=== PATIENT | female | born 2000 | race Caucasian/White ===

== ENCOUNTER 2023-05-14 10:50 | Emergency (ER) | payer BC, OTHER, SELFPAY ==
[2023-05-14 10:56] VITALS: BP 136/82; PULSE 94; RESP 16; TEMP 36.9; O2SAT 96; BMI 50.8
--- NOTE | 2023-05-14 11:03 | US_ITS ---
[place] [id number] Patient Name: MADDI HERRERA MRN: [id number] date: 2000 Sex: F Assigned Patient Location: ED.MAIN Current Patient Location: ER Accession/Order Number: [id number] Exam Date: 05/14/2023 11:04 Report Date: 05/14/2023 11:59 At the request of: EDU CARLSON Procedure: US OB <= 14 weeks fetus EXAMINATION: US OB <= 14 weeks fetus HISTORY: vaginal bleeding COMPARISON: No relevant comparison available. FINDINGS: GESTATIONAL SAC: Present and normal appearing. YOLK SAC: Present and normal appearing. POLE: Present and normal appearing. CARDIAC: Present. UTERUS: Normal size and appearance. OVARIES: Right: Not seen. Left: Not seen. CERVIX: 3.6 cm in length and closed. CUL-DE-SAC: Normal. OTHER: None. AGE BY LMP: 11 weeks 4 days MARIELOS BY LMP: 11/29/2023 AGE BY US CRL: 11 weeks 5 days MARIELOS BY US CRL: 11/28/2023 US/US OB <= 14 weeks fetus IMPRESSION: 1. Single live intrauterine . No acute or suspicious findings. Electronically authenticated by: ABRAHAM GOODE Date: 05/14/2023 11:59
[2023-05-14 11:59] LABS: Basophils Percent Auto 0.5 % (0.2-2.0); Eosinophils Absolute Auto 0.2 10^3/uL (0.0-0.7); Eosinophils Percent Auto 3.5 % (0.9-7.0); Hematocrit 36.9 % (36.0-48.0); Hemoglobin 12.4 g/dL (12.0-16.0); Immature Granulocytes Abs Auto 0.02 10^3/uL (0.00-0.03); Immature Granulocytes Pct Auto 0.3 % (0.0-0.5); Lymphocytes Absolute Auto 1.1 10^3/uL (1.2-3.8); Lymphocytes Percent Auto 18.2 % (20.5-60.0); Mean Corpuscular HGB Conc 33.6 g/dL (29.9-35.2); Mean Corpuscular Hemoglobin 28.5 pg (26.7-34.0); Mean Corpuscular Volume 84.8 fL (81.0-99.0); Mean Platelet Volume 9.5 fL (9.5-13.5); Monocytes Absolute Auto 0.3 10^3/uL (0.3-0.8); Monocytes Percent Auto 5.4 % (1.7-12.0); Neutrophils Absolute Auto 4.2 10^3/uL (1.4-6.5); Neutrophils Percent Auto 72.1 % (43.0-75.0); Platelet Count 283 10^3/uL (150-450); Red Blood Count 4.35 10^6/uL (4.20-5.40); Red Cell Distribution Width 13.1 % (11.0-15.0); White Blood Count 5.8 10^3/uL (4.0-11.0)
[2023-05-14 12:06] LABS: Alanine Aminotransferase 15 U/L (14-59); Albumin Level 3.8 g/dL (3.4-5.0); Alkaline Phosphatase 48 U/L (46-116); Anion Gap 13.5; Aspartate Amino Transferase 15 U/L (15-37); BUN Creatinine Ratio 7.2; Bilirubin Total 0.9 mg/dL (0.2-1.0); Calcium 8.9 mg/dL (8.5-10.1); Carbon Dioxide 24.3 mmol/L (21.0-32.0); Chloride 101 mmol/L (98-107); Estimated GFR (African America >60 (>=60); Estimated GFR (Non-African Ame >60 (>=60); Globulin 3.9 g/dL; Glucose 84 mg/dL (74-106); Potassium 3.8 mmol/L (3.5-5.1); Sodium 135 mmol/L (136-145); Total Protein 7.7 g/dL (6.4-8.2)
[2023-05-14 12:27] VITALS: BP 110/79
[2023-05-14 12:28] VITALS: PULSE 86; RESP 16; TEMP 36.8; O2SAT 99
--- NOTE | 2023-05-14 14:10 | ED.FEMALEGU1 ---
HPI - Female Genitourinary General Chief complaint: Vaginal Bleeding Stated complaint: -11 WKS/BLEEDING/SPOTTING Time Seen by Provider: 05/14/23 10:58 Source: patient Mode of arrival: walk-in Limitations: no limitations History of Present Illness HPI Narrative: The patient is 11 weeks this is her third and both of her first were continued until terms no history of miscarriage The patient presented to us with this vaginal bleeding that started Sunday according to her the bleeding was similar to her menstruation bleeding and not more than that if not associated with any cramping It started Sunday and resolved by Sunday but again started this morning too She already contacted her [employer] office and they told her to follow-up with the ER Related Data Home Medications Medication Instructions Recorded Confirmed ondansetron HCl 4 mg tablet mg 05/14/23 sertraline 100 mg tablet mg 05/14/23 Allergies Allergy/AdvReac Type Severity Reaction Status Date / Time Penicillins AdvReac Intermediate Verified 05/14/23 10:55 Review of Systems ROS Status of ROS 10 or more systems reviewed and unremarkable except as noted in history and below PFSH PFS Social History Smoking status: Never smoker Exam Narrative Exam Narrative: Nurses notes and vital signs reviewed and patient is not hypoxic. General: Well-appearing and in no apparent distress. Skin: Warm, dry, no pallor noted. No rash. Head: Normocephalic, atraumatic. Neck: Supple, non-tender. Eye: Pupils are equal, round and EOMI. No scleral icterus. Ears, Nose, Mouth, and Throat: TM are clear, no nasal mucosal hypertrophy. Oral mucosa is moist, no posterior oropharynx erythema, uvula is mid-line Cardiovascular: Regular Rate and Rhythm without murmur, gallop or rub. Respiratory: No accessory muscle use or respiratory distress. Lungs are clear to auscultation, no wheezing, rales or rhonchi Chest Wall: no tenderness Back: No midline thoracic or lumbar vertebral tenderness. No CVA tenderness Musculoskeletal: normal ROM, no calf or popliteal tenderness, no lower extremity edema/swelling GI: Abdomen is soft, non-distended. Normal bowel sounds. No masses appreciated. No tenderness to palpation. No rebound, guarding, or rigidity noted. Neurological: A&O x4. No cranial nerve dysfunction observed. No truncal ataxia. Moves all extremities. Sensation intact. Psychiatric: Cooperative and interactive. Normal mood and affect. Constitutional Vital Signs, click to edit/add: Last Vital Signs Temp 98.2 F 05/14/23 12:28 Pulse 86 05/14/23 12:28 Resp 16 05/14/23 12:28 BP 110/79 05/14/23 12:27 Pulse Ox 99 05/14/23 12:28 O2 Del Method Room Air 05/14/23 10:56 Course Vital Signs Vital signs: Vital Signs Temperature 98.4 F 05/14/23 10:56 Pulse Rate 94 H 05/14/23 10:56 Respiratory Rate 16 05/14/23 10:56 Blood Pressure 136/82 H 05/14/23 10:56 Pulse Oximetry 96 05/14/23 10:56 Oxygen Delivery Method Room Air 05/14/23 10:56 Temperature 98.2 F 05/14/23 12:28 Pulse Rate 86 05/14/23 12:28 Respiratory Rate 16 05/14/23 12:28 Blood Pressure 110/79 05/14/23 12:27 Pulse Oximetry 99 05/14/23 12:28 Oxygen Delivery Method Room Air 05/14/23 10:56 MDM - Female Genitourinary MDM Narrative Medical decision making narrative: The patient CBC and chemistry showed no acute significant pathology and she was hemodynamically stable Ultrasound of the pelvis showed that the patient have intrauterine that is 11 weeks with no pathology detected Right now the patient was provided with instruction of rest and avoid exertion and sexual intercourse The patient to follow-up with her OB doctor within the week and to come back to the ER in case of any new symptoms or increasing bleeding It was noted that the patient was not bleeding in the ER Lab Data Labs: Lab Results 05/14/23 Range/Units 11:25 WBC 5.8 (4.0-11.0) 10^3/uL RBC 4.35 (4.20-5.40) 10^6/uL Hgb 12.4 (12.0-16.0) g/dL Hct 36.9 (36.0-48.0) % MCV 84.8 (81.0-99.0) fL MCH 28.5 (26.7-34.0) pg MCHC 33.6 (29.9-35.2) g/dL RDW 13.1 (11.0-15.0) % Plt Count 283 (150-450) 10^3/uL MPV 9.5 (9.5-13.5) fL Neut % (Auto) 72.1 (43.0-75.0) % Lymph % (Auto) 18.2 L (20.5-60.0) % Dale % (Auto) 5.4 (1.7-12.0) % Eos % (Auto) 3.5 (0.9-7.0) % Baso % (Auto) 0.5 (0.2-2.0) % Neut # (Auto) 4.2 (1.4-6.5) 10^3/uL Lymph # (Auto) 1.1 L (1.2-3.8) 10^3/uL Dale # (Auto) 0.3 (0.3-0.8) 10^3/uL Eos # (Auto) 0.2 (0.0-0.7) 10^3/uL Baso # (Auto) 0.0 (0.0-0.1) 10^3/uL Abs Immat Gran (auto) 0.02 (0.00-0.03) 10^3/uL Imm/Tot Granulo (auto) 0.3 (0.0-0.5) % Sodium 135 L (136-145) mmol/L Potassium 3.8 (3.5-5.1) mmol/L Chloride 101 (98-107) mmol/L Carbon Dioxide 24.3 (21.0-32.0) mmol/L Anion Gap 13.5 BUN 5.0 L (7.0-18.0) mg/dL Creatinine 0.69 (0.55-1.02) mg/dL Est GFR ( Amer) >60 (>=60) Est GFR (Non-Af Amer) >60 (>=60) BUN/Creatinine Ratio 7.2 Glucose 84 (74-106) mg/dL Calcium 8.9 (8.5-10.1) mg/dL Total Bilirubin 0.9 (0.2-1.0) mg/dL AST 15 (15-37) U/L ALT 15 (14-59) U/L Alkaline Phosphatase 48 (46-116) U/L Total Protein 7.7 (6.4-8.2) g/dL Albumin 3.8 (3.4-5.0) g/dL Globulin 3.9 g/dL Albumin/Globulin Ratio 1.0 Discharge Plan Discharge Chief Complaint: Vaginal Bleeding Clinical Impression: Threatened miscarriage Patient Disposition: Home, Self-Care Time of Disposition Decision: 12:21 Condition: Good Mode of Transportation: Private Vehicle Prescriptions / Home Meds: No Action ondansetron HCl 4 mg tablet sertraline 100 mg tablet Instructions: Threatened Miscarriage (ED) Additional Instructions: please call your OB and make appointment [facility] Stand Alone Forms: Portal Instructions Referrals: WALDO KENNEDY [Primary Care Provider] - 1 week Discharge Date/Time: 05/14/23 12:30
== END 2023-05-14 12:30 | disposition home or self-care (01) ==
PROVIDERS: Emergency Provider Emergency Medicine; PCP Family Medicine
DX: O20.0 Threatened abortion (principal); Z79.899 Other long term (current) drug therapy; Z3A.11 11 weeks gestation of pregnancy
CPT/HCPCS: 36415; 76801; 80053; 85025; 99284

== ENCOUNTER 2023-10-25 19:16 | Observation (INO) | payer BC, SELFPAY ==
[2023-10-25] VITALS (11 sets, daily range): BP systolic 80–128; BP diastolic 41–70; PULSE 52–98; TEMP 36.3
[2023-10-25 20:01] LABS: Amnisure POSITIVE (NEGATIVE)
[2023-10-25 20:14] LABS: Bilirubin Urine NEGATIVE (NEGATIVE); Blood Urine LARGE (NEGATIVE); Clarity Urine CLEAR (CLEAR); Color Urine LT. YELLOW (YELLOW); Glucose Urine UA NEGATIVE (NEGATIVE); Ketones Urine NEGATIVE (NEGATIVE); Leukocyte Esterase Urine SMALL (NEGATIVE); Nitrite Urine NEGATIVE (NEGATIVE); Protein Urine TRACE mg/dL (NEG/TRACE); Urobilinogen Urine 0.2 EU/dL (0.2-1.0); pH Urine 7.5 (5.0-9.0)
[2023-10-25 20:16] LABS: Urine Microscopic Indicated YES
[2023-10-25 20:26] LABS: Bacteria Urine SMALL #/HPF (NONE SEEN); Cast Seen? NONE SEEN #/LPF (NONE SEEN); Crystals Seen? None Seen #/HPF (None Seen); Mucus Urine LARGE (NONE SEEN); Squamous Epithelial Cell Urine FEW #/LPF (NONE/RARE); Urine Culture Indicated YES
[2023-10-25] MEDS: CLINDAMYCIN PHOSPHATE/D5W 900 MG/50 ML PIGGYBACK 100 MG IV (21:45)
[2023-10-25] MEDS: 0.9 % SODIUM CHLORIDE 1,000 ML 125 ML IV (21:47)
[2023-10-25 22:00] LABS: Hematocrit 27.9 % (36.0-48.0); Hemoglobin 8.9 g/dL (12.0-16.0); Mean Corpuscular HGB Conc 31.9 g/dL (29.9-35.2); Mean Corpuscular Hemoglobin 27.3 pg (26.7-34.0); Mean Corpuscular Volume 85.6 fL (81.0-99.0); Mean Platelet Volume 9.9 fL (9.5-13.5); Platelet Count 281 10^3/uL (150-450); Red Blood Count 3.26 10^6/uL (4.20-5.40); Red Cell Distribution Width 13.4 % (11.0-15.0); White Blood Count 9.1 10^3/uL (4.0-11.0)
[2023-10-25] MEDS: BETAMETHASONE ACE/BETAMETHASONE SOD PHOS 30 MG/5 ML 12 MG IM (22:33)
--- NOTE | 2023-10-25 22:38 | P.DS_ITS ---
Transfer Discharge Sum: Prov Provider Date of admission: 10/25/23 19:16 Primary care physician: WALDO KENNEDY Attending physician on admission: Nazia Ga Discharging clinician: Nazia Ga Anticipated date of transfer: 10/25/23 Receiving physician/facility: [facility]: [place] [address] PANDYA RECEIVING TRANSFER DS: Diagnosis Discharge Diagnosis (1) premature rupture of membranes (PPROM) delivered, current hospitalization: Assessment and plan: RARE CONTRACTIONS NOT PAINFUL, CERVIX 2 CM INNER OS, POSTERIOR, SOFT, BALLOTTABLE, VERTEX. CAT I HEART TRACING. NO BLEEDING. NO TEMP. STABLE VSS. PATIENT'S OB AT [facility]. RECORDS NOT AVAILABLE. BABY NEEDS DELIVERY AT [facility]: [place] DUE TO CLEFT LIP AND CLEFT PALATE Plan DR. PANDYA RECEIVED TRANSFER OF PATIENT AT [place] Transfer Discharge Sum: Med Medications Active and Home Medications: Home Medications ondansetron HCl 4 mg tablet mg 05/14/23 [History] sertraline 100 mg tablet mg 05/14/23 [History] Active Medications Sodium Chloride (Sodium Chloride 0.9% 1,000 Ml) 1,000 mls @ 125 mls/hr IV .Q8H [facility] Last Admin: 10/25/23 21:47 Dose: 125 mls/hr Clindamycin Phosphate/Dextrose (Cleocin Phosphate/D5w 900 Mg/50 Ml Piggyback) 900 mg in 50 mls @ 100 mls/hr IV Q8H [facility] Last Admin: 10/25/23 21:45 Dose: 100 mls/hr Transfer Discharge Sum: Hosp Time Spent with Patient Time attestation: Total time spent providing and/or coordinating transfer services: Exam Constitutional: Vital Signs, click to edit/add: Last Vital Signs Temp 97.3 F L 10/25/23 19:49 Pulse 83 10/25/23 22:21 BP 97/59 10/25/23 22:21 Documenting provider has reviewed patient's vital signs: yes Common normals: no apparent distress, oriented x3, no limitations, healthy appearing, alert and well nourished General appearance: cooperative and well kempt HENMT: Common normals: normocephalic and head/scalp atraumatic Eye: Pupil: PERRL and accommodation reflex normal Neck & C-Spine: Common normals: full ROM and supple Respiratory: Common normals: normal respiratory effort Cardio: Common normals: regular rate and regular rhythm GI: Common normals: Normal to inspection, nondistended, normoactive bowel sounds present, soft to palpation and non-tender : Common normals: no CVA tenderness, external appearance normal and appearance of the vagina normal Speculum exam - cervix: cervical os open (OUTER OS 3 INNER OS 2, POSTERIOR, 50 PERCENT, SOFT VERTEX, BALLOTTABLE) Back & Pelvis: Common normals: no CVA tenderness Extremity: Common normals: normal to inspection, full ROM and no calf tenderness Neuro: Common normals: oriented x3, CN's II-XII intact bilaterally, moves all extremities, no focal motor deficits and no sensory deficits noted Psych: Common normals: mental status grossly normal, thought process normal, cooperative, affect normal and speech normal Transfer Discharge Sum: Data Data Completed and Pending Completed studies during hospitalization: CBC,TYPE AND SCREEN, UA, AMNISURE Discharge Plan Discharge Disposition: [facility] Assessment: NOT IN LABOR, CAT I HEART TRACING, AFEBRILE, VSS Discharge Medications: New IV with Additives 0.9 % Sodium Chloride [Sodium Chloride 0.9% 1,000 ml] 1000 ML 125 mls/hr IV Ordered By: Nazia Ga MD Last Taken: 10/25/23 21:47 125 mls/hr Continued ondansetron HCl 4 mg tablet sertraline 100 mg tablet Activity Restrictions/Additional Instructions: BEDREST Discharge location: DISCHARGED FROM [facility]
[2023-10-26 01:55] LABS: Amphetamine Screen Urine NEGATIVE (NEGATIVE); Barbiturates Screen Urine NEGATIVE (NEGATIVE); Benzodiazepines Screen Urine NEGATIVE (NEGATIVE); Buprenorphine Screen Urine NEGATIVE (NEGATIVE); Cannabinoid Screen Urine NEGATIVE (NEGATIVE); Cocaine Screen Urine NEGATIVE (NEGATIVE); Methadone Screen Urine NEGATIVE (NEGATIVE); Methamphetamines Screen Urine NEGATIVE (NEGATIVE); Opiate Screen Urine NEGATIVE (NEGATIVE); Oxycodone Screen Urine NEGATIVE (NEGATIVE); Phencyclidine Screen Urine NEGATIVE (NEGATIVE); Tricyclic Antidepressant Urine NEGATIVE (NEGATIVE)
== END 2023-10-25 23:40 | disposition short-term general hospital (02) ==
PROVIDERS: Admitting Provider Obstetrics & Gynecology; PCP Family Medicine; Visit Provider Obstetrics & Gynecology
DX: O42.913 Preterm premature rupture of membranes, unspecified as to length of time between rupture and onset of labor, third trimester (principal); O35.AXX0 Maternal care for other (suspected) fetal abnormality and damage, fetal facial anomalies, not applicable or unspecified; Z3A.35 35 weeks gestation of pregnancy
CPT/HCPCS: 36415; 59025; 80307; 81001; 84112; 85027; 86850; 86900; 86901; 87086; 96372; 96374; G0378; G0379; J0702; J0736